=== PATIENT | female | born 1995 | race Caucasian/White ===

== ENCOUNTER 2018-08-23 00:03 | Emergency (ER) | payer OTHER ==
[~2018-08-23 00:03] MED LIST: AUG250L PO; CYCL10TA29 PO; DICL-195 PO; LOR5/325 PO; NO RTN MEDS
[2018-08-23 00:08] VITALS: BP 137/90
--- NOTE | 2018-08-23 00:08 | ER Report ---
History and Physical Time Seen By MD: 00:05 HPI/ROS CHIEF COMPLAINT: Left shoulder injury,? 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 She has a lot of anterior shoulder pain. She has decreased range of motion. He is wondering if her shoulders dislocated. Allergies: Coded Allergies: No Known Drug Allergies (Verified , 08/23/18) Home Meds Active Scripts Hydrocodone Bit/Acetaminophen (HYDROCODON-ACETAMINOPHEN 5-325) 1 Each Tablet, 1 EACH PO Q4-6H PRN for PAIN, #12 TAKE ONE TABLET BY MOUTH EVERY 4-6 HOURS NEEDED FOR PAIN Prov:GOPIMICHAEL M DO 08/23/18 Discontinued Scripts Diclofenac Sodium (DICLOFENAC SODIUM) 75 Mg Tablet., 75 MG PO BID, #20 TAB Prov:NORMA DANG [employer]AD NETWORK ARCHITECT 11/11/15 Reviewed Nurses Notes: Yes Old Medical Records Reviewed: Yes Hx Smoking: No Smoking Status: Never Smoker Constitutional Vital Sign - Last 24 Hours 08/23/18 00:08 Temp 97.9 Pulse 105 Resp 14 B/P (MAP) 137/90 Pulse Ox 91 O2 Delivery Room Air Physical Exam General Appearance: The patient is alert, has no immediate need for airway protection and no current signs of toxicity. Vital signs stable, afebrile Eyes: Pupils equal and round no injection. Respiratory: Chest is non tender, lungs are clear to auscultation. Cardiac: regular rate and rhythm Gastrointestinal: Abdomen is soft and non tender, no masses, bowel sounds normal. Musculoskeletal: Neck: Neck is supple and non tender. Extremities have full range of motion and are non tender. Left shoulder, tenderness over the before meals joint, the anterior aspect of the shoulder. The shoulder does not appear dislocated. She demonstrates about 50% range of motion. Left upper extremity is neurovascularly intact Skin: No rashes or lesions. DIFFERENTIAL DIAGNOSIS: After history and physical exam differential diagnosis was considered for sprain, strain, fracture, dislocation, contusion Medical Decision Making EKG/Imaging Imaging X-ray: Two-view chest x-ray was obtained. I viewed the images myself on the PACS system. My interpretation of the images is: No fracture no dislocation or malalignment. The radiologist interpretation had no clinically significant variation from this interpretation. ED Course/Re-evaluation ED Course Patient was admitted to an examination room. H&P was done. The differential diagnoses was considered. On clinical examination. Patient has neurovascularly intact. Left arm. The shoulder is very tender to palpation. There is decreased range of motion. Diagnostic x-rays show no obvious fracture or dislocation. Patient's placed in a sling and advised to conservative treatment plan of ibuprofen. A limited supply of Lortab is provided for temporary pain relief. Decision to Disposition Date: Aug 23, 2018 Decision to Disposition Time: 00:39 Depart Departure Latest Vital Signs Vital Signs Date Time Temp Pulse Resp B/P (MAP) Pulse Ox O2 Delivery O2 Flow Rate FiO2 08/23/18 00:08 97.9 105 14 137/90 91 Room Air Impression: Primary Impression: Contusion of left shoulder Additional Impression: Sprain of shoulder, left Condition: Improved Disposition: HOME OR SELF-CARE New Scripts Hydrocodone Bit/Acetaminophen (HYDROCODON-ACETAMINOPHEN 5-325) 1 Each Tablet 1 EACH PO Q4-6H PRN for PAIN, #12 TAKE ONE TABLET BY MOUTH EVERY 4-6 HOURS NEEDED FOR PAIN Prov: MICHAEL NGUYỄN DO 08/23/18 Patient Instructions: Contusion in Adults (ED), Shoulder Sprain (ED) Additional Instructions: Take ibuprofen 200 mg 3 tablets 3 times a day with food Apply ice packs to this area as much as possible for the 1st 2-3 days Follow-up with the team physician. Dr. Palomino Problem Qualifiers Primary Impression: Contusion of left shoulder Encounter type: initial encounter Qualified Codes: S40.012A - Contusion of left shoulder, initial encounter Additional Impression: Sprain of shoulder, left Encounter type: initial encounter Shoulder sprain type: unspecified sprain Qualified Codes: S43.402A - Unspecified sprain of left shoulder joint, initial encounter MICHAEL NGUYỄN DO Aug 23, 2018 00:08
[2018-08-23] MEDS ORDERED: LOR5/325 PO (00:41)
[2018-08-23] MEDS ORDERED: ACET/HYDROC 5/325MG TH ER ONLY 2 TAB/BOTTLE PO ONE (00:45)
--- NOTE | 2018-08-23 00:49 | RADIOLOGY IMAGING REPORT ---
[place] [facility] [place] Christina Madera : 1995 MR: [id number] V: [id number] EXAM DATE: ORDERING PHYSICIAN: MICHAEL NGUYỄN TECHNOLOGIST: Location: [facility] Patient: Christina Madera : 1995 Visit/Account:[id number] Date of Sevice: 08/23/2018 INDICATION: Fall, left shoulder injury and pain. Possible dislocation. EXAM DATE: 08/23/2018 12:08 AM COMPARISON: 08/14/2014. FINDINGS: 2 views of the left shoulder. Mineralization is normal. No definite acute alignment abnormality or f racture. Remote clavicle fracture. Soft tissues are unremarkable. IMPRESSION: No definite acute osseous abnormality of the left shoulder. If there is persistent clin ical concern for dislocation, consider dedicated axillary view. Report Dictated By: Jorge Giles MD at 08/23/2018 12:43 AM Report E-Signed By: Jorge Giles MD at 08/23/2018 12:46 AM WSN:[id number]
== END 2018-08-23 00:58 | disposition home or self-care (01) ==
LOC: ER 00:22
DX: S40.012A Contusion of left shoulder, initial encounter (principal); S43.402A Unspecified sprain of left shoulder joint, initial encounter; W18.30XA Fall on same level, unspecified, initial encounter; Y93.22 Activity, ice hockey
CPT/HCPCS: 73030; 99283; A4565

== ENCOUNTER 2018-11-24 22:25 | Emergency (ER) | payer OTHER ==
[2018-11-24 22:34] VITALS: BP 133/88
[2018-11-24 23:01] LABS: PLATELET COUNT, AUTOMATED 237 K/uL (150-450)
--- NOTE | 2018-11-24 23:14 | ER Report ---
History and Physical Time Seen By MD: 23:13 Hx. of Stated Complaint: PATIENT GOING THROUGH DIVORCE, WANT TO SHOOT HERSELF. HPI/ROS CHIEF COMPLAINT: Depression, suicidal ideation HISTORY OF PRESENT ILLNESS: Patient is a 23-year-old female here with complaints of depression, suicidal ideation, currently going through a divorce. Patient has been having intermittent thoughts of suicide specifically by means of a gun. Patient does have access to weapons. Patient does report using cannabis, acid, alcohol intermittently. Patient denies prior history of suicide attempts. Patient does report history of cutting. REVIEW OF SYSTEMS: Constitutional: No fever, no chills. Eyes: No discharge. ENT: No sore throat. Cardiovascular: No chest pain, no palpitations. Respiratory: No cough, no shortness of breath. Gastrointestinal: No abdominal pain, no vomiting. Genitourinary: No hematuria. Musculoskeletal: No back pain. Skin: No rashes. Neurological: No headache. Psych: + SI, depression, anxiety Allergies: Coded Allergies: No Known Drug Allergies (Verified , 08/23/18) Home Meds Active Scripts Hydrocodone Bit/Acetaminophen (HYDROCODON-ACETAMINOPHEN 5-325) 1 Each Tablet, 1 EACH PO Q4-6H PRN for PAIN, #12 TAKE ONE TABLET BY MOUTH EVERY 4-6 HOURS NEEDED FOR PAIN Prov:MICHAEL NGUYỄN DO 08/23/18 Hx Smoking: No Smoking Status: Never Smoker Hx Substance Use Disorder: No Hx Alcohol Use: Yes Constitutional Vital Sign - Last 24 Hours 11/24/18 22:34 Temp 98.8 Pulse 104 Resp 16 B/P (MAP) 133/88 Pulse Ox 95 O2 Delivery Room Air Physical Exam General Appearance: The patient is alert, has no immediate need for airway protection and no signs of toxicity. Anxious appearing, depressed, suicidal Eyes: Pupils equal and round no pallor or injection. ENT, Mouth: Mucous membranes are moist. Respiratory: There are no retractions, lungs are clear to auscultation. Cardiovascular: Regular rate and rhythm. [ ] Gastrointestinal: Abdomen is soft and non tender, no masses, bowel sounds normal. Neurological: No focal neurological deficits Skin: Warm and dry, no rashes. Musculoskeletal: Neck is supple non tender. Extremities are nontender, nonswollen and have full range of motion. DIFFERENTIAL DIAGNOSIS: After history and physical exam differential diagnosis was considered for depression, anxiety, suicidal ideation, significant life stressors Medical Decision Making Data Points Result Diagram: 11/24/18223111/24/182231 Laboratory Hematology Test 11/24/18 22:32 11/24/18 22:34 Red Blood Count 5.26 M/uL (4.17-5.56) Mean Corpuscular Volume 90.9 fL (80.0-96.0) Mean Corpuscular Hemoglobin 31.5 pg (26.0-33.0) Mean Corpuscular Hemoglobin Concent 34.7 g/dL (32.0-36.0) Red Cell Distribution Width 12.8 % (11.5-14.5) Mean Platelet Volume 9.2 fL (7.2-11.1) Neutrophils (%) (Auto) 68.0 % (39.4-72.5) Lymphocytes (%) (Auto) 23.7 % (17.6-49.6) Monocytes (%) (Auto) 6.9 % (4.1-12.4) Eosinophils (%) (Auto) 0.8 % (0.4-6.7) Basophils (%) (Auto) 0.6 % (0.3-1.4) Nucleated RBC Relative Count (auto) 0.0 /100WBC Neutrophils # (Auto) 5.6 K/uL (2.0-7.4) Lymphocytes # (Auto) 1.9 K/uL (1.3-3.6) Monocytes # (Auto) 0.6 K/uL (0.3-1.0) Eosinophils # (Auto) 0.1 K/uL (0.0-0.5) Basophils # (Auto) 0.1 K/uL (0.0-0.1) Nucleated RBC Absolute Count (auto) 0.00 K/uL Sodium Level 144 mmol/L (137-145) Potassium Level 3.0 mmol/L (3.5-5.0) Chloride Level 104 mmol/L (98-107) Carbon Dioxide Level 25 mmol/L (22-31) Blood Urea Nitrogen 9 mg/dl (7-18) Creatinine 0.90 mg/dl (0.52-1.04) Glomerular Filtration Rate Calc > 60.0 Random Glucose 93 mg/dl (75-110) Calcium Level 9.9 mg/dl (8.4-10.2) Magnesium Level 1.7 mg/dl (1.7-2.2) Total Bilirubin 0.7 mg/dl (0.2-1.3) Aspartate Amino Transf (AST/SGOT) 31 U/L (0-35) Alanine Aminotransferase (ALT/SGPT) 22 U/L (0-56) Alkaline Phosphatase 77 U/L (0-126) Total Protein 8.5 g/dl (6.3-8.2) Albumin 4.8 g/dl (3.5-5.0) Salicylates Level < 10 mg/L Salicylate Last Dose Date unknown Acetaminophen Level < 10 ug/ml Serum Alcohol < 10 mg/dl Urine Color Yellow Urine Clarity Clear Urine pH 5.0 pH (4.8-9.5) Urine Specific [place] 1.030 Urine Protein Negative mg/dL (NEGATIVE) Urine Glucose (UA) Negative mg/dL (NEGATIVE) Urine Ketones 20 mg/dL (NEGATIVE) Urine Blood Large (NEGATIVE) Urine Nitrite Negative (NEGATIVE) Urine Bilirubin Negative (NEGATIVE) Urine Urobilinogen 2.0 mg/dL (0.2-1.9) Urine Leukocyte Esterase Negative (NEGATIVE) Urine RBC 89 /HPF (0-2/HPF) Urine WBC 8 /HPF (0-5/HPF) Urine Squamous Epithelial Cells Many /LPF (</=FEW) Urine Bacteria Negative /HPF (NONE-FEW) Urine Hyaline Casts Few /LPF (NONE-FEW) Urine Mucus Few /HPF (NONE-FEW) Urine HCG, Qualitative Negative (NEGATIVE) Urine Opiates Screen Negative Urine Barbiturates Screen Negative Ur Tricyclic Antidepressants Screen Negative Urine Phencyclidine Screen Negative Urine Amphetamines Screen Negative Urine Benzodiazepines Screen Negative Urine Cocaine Screen Negative Urine Cannabinoids Screen Negative Chemistry Test 11/24/18 22:32 11/24/18 22:34 White Blood Count 8.2 k/uL (4.5-11.0) Red Blood Count 5.26 M/uL (4.17-5.56) Hemoglobin 16.6 g/dL (12.0-16.0) Hematocrit 47.8 % (34.0-47.0) Mean Corpuscular Volume 90.9 fL (80.0-96.0) Mean Corpuscular Hemoglobin 31.5 pg (26.0-33.0) Mean Corpuscular Hemoglobin Concent 34.7 g/dL (32.0-36.0) Red Cell Distribution Width 12.8 % (11.5-14.5) Platelet Count 237 K/uL (150-450) Mean Platelet Volume 9.2 fL (7.2-11.1) Neutrophils (%) (Auto) 68.0 % (39.4-72.5) Lymphocytes (%) (Auto) 23.7 % (17.6-49.6) Monocytes (%) (Auto) 6.9 % (4.1-12.4) Eosinophils (%) (Auto) 0.8 % (0.4-6.7) Basophils (%) (Auto) 0.6 % (0.3-1.4) Nucleated RBC Relative Count (auto) 0.0 /100WBC Neutrophils # (Auto) 5.6 K/uL (2.0-7.4) Lymphocytes # (Auto) 1.9 K/uL (1.3-3.6) Monocytes # (Auto) 0.6 K/uL (0.3-1.0) Eosinophils # (Auto) 0.1 K/uL (0.0-0.5) Basophils # (Auto) 0.1 K/uL (0.0-0.1) Nucleated RBC Absolute Count (auto) 0.00 K/uL Glomerular Filtration Rate Calc > 60.0 Calcium Level 9.9 mg/dl (8.4-10.2) Magnesium Level 1.7 mg/dl (1.7-2.2) Total Bilirubin 0.7 mg/dl (0.2-1.3) Aspartate Amino Transf (AST/SGOT) 31 U/L (0-35) Alanine Aminotransferase (ALT/SGPT) 22 U/L (0-56) Alkaline Phosphatase 77 U/L (0-126) Total Protein 8.5 g/dl (6.3-8.2) Albumin 4.8 g/dl (3.5-5.0) Salicylates Level < 10 mg/L Salicylate Last Dose Date unknown Acetaminophen Level < 10 ug/ml Serum Alcohol < 10 mg/dl Urine Color Yellow Urine Clarity Clear Urine pH 5.0 pH (4.8-9.5) Urine Specific [place] 1.030 Urine Protein Negative mg/dL (NEGATIVE) Urine Glucose (UA) Negative mg/dL (NEGATIVE) Urine Ketones 20 mg/dL (NEGATIVE) Urine Blood Large (NEGATIVE) Urine Nitrite Negative (NEGATIVE) Urine Bilirubin Negative (NEGATIVE) Urine Urobilinogen 2.0 mg/dL (0.2-1.9) Urine Leukocyte Esterase Negative (NEGATIVE) Urine RBC 89 /HPF (0-2/HPF) Urine WBC 8 /HPF (0-5/HPF) Urine Squamous Epithelial Cells Many /LPF (</=FEW) Urine Bacteria Negative /HPF (NONE-FEW) Urine Hyaline Casts Few /LPF (NONE-FEW) Urine Mucus Few /HPF (NONE-FEW) Urine HCG, Qualitative Negative (NEGATIVE) Urine Opiates Screen Negative Urine Barbiturates Screen Negative Ur Tricyclic Antidepressants Screen Negative Urine Phencyclidine Screen Negative Urine Amphetamines Screen Negative Urine Benzodiazepines Screen Negative Urine Cocaine Screen Negative Urine Cannabinoids Screen Negative Toxicology Test 11/24/18 22:32 11/24/18 22:34 Salicylates Level < 10 mg/L Salicylate Last Dose Date unknown Acetaminophen Level < 10 ug/ml Serum Alcohol < 10 mg/dl Urine Opiates Screen Negative Urine Barbiturates Screen Negative Ur Tricyclic Antidepressants Screen Negative Urine Phencyclidine Screen Negative Urine Amphetamines Screen Negative Urine Benzodiazepines Screen Negative Urine Cocaine Screen Negative Urine Cannabinoids Screen Negative Urinalysis Test 11/24/18 22:34 Urine Color Yellow Urine Clarity Clear Urine pH 5.0 pH (4.8-9.5) Urine Specific [place] 1.030 Urine Protein Negative mg/dL (NEGATIVE) Urine Glucose (UA) Negative mg/dL (NEGATIVE) Urine Ketones 20 mg/dL (NEGATIVE) Urine Blood Large (NEGATIVE) Urine Nitrite Negative (NEGATIVE) Urine Bilirubin Negative (NEGATIVE) Urine Urobilinogen 2.0 mg/dL (0.2-1.9) Urine Leukocyte Esterase Negative (NEGATIVE) Urine RBC 89 /HPF (0-2/HPF) Urine WBC 8 /HPF (0-5/HPF) Urine Squamous Epithelial Cells Many /LPF (</=FEW) Urine Bacteria Negative /HPF (NONE-FEW) Urine Hyaline Casts Few /LPF (NONE-FEW) Urine Mucus Few /HPF (NONE-FEW) Urine HCG, Qualitative Negative (NEGATIVE) ED Course/Re-evaluation ED Course Patient is a 23-year-old female here with complaints of depression, anxiety, suicidal ideations. Patient does report having history of cutting however she denies prior history of suicide attempts. Patient admits to active suicidal ideations using weapons which she has access to. I discussed the patient with Dr. Vasquez who accepted the patient to behavioral health services. Patient became increasingly more anxious and felt isolated to I discussed with her further the reasoning for admitting her to behavioral health services. Patient was given Ativan 1 tablet orally and was stable at time of admission. Decision to Disposition Date: November 24, 2018 Decision to Disposition Time: 22:30 Depart Departure Latest Vital Signs Vital Signs Date Time Temp Pulse Resp B/P (MAP) Pulse Ox O2 Delivery O2 Flow Rate FiO2 11/24/18 22:34 98.8 104 16 133/88 95 Room Air Impression: Primary Impression: Depressed Additional Impression: Suicidal ideations Condition: Condition Unchanged Disposition: XFER TO [facility] Problem Qualifiers ESTHER MENENDEZ DO November 24, 2018 23:14
[2018-11-25] MEDS ORDERED: LORazepam 1 MG TAB PO ONE (00:35)
== END 2018-11-25 01:00 ==
LOC: ER 22:48
DX: F32.9 Major depressive disorder, single episode, unspecified (principal); R45.851 Suicidal ideations; F41.9 Anxiety disorder, unspecified
CPT/HCPCS: 36415; 80305; 80320; 80329; 81001; 81025; 82040; 82247; 82310; 82374; 82435; 82565; 82947; 83735; 84075; 84132; 84155; 84295; 84443; 84450; 84460; 84520; 85025; 99284

== ENCOUNTER 2018-11-25 00:20 | Inpatient (IN) | payer OTHER ==
[~2018-11-25] VITALS: Ht 167.6 cm; Wt 77.1 kg
[2018-11-25] MEDS ORDERED: LORazepam 1 MG TAB PO ONE ×2 (00:30→12:50)
[2018-11-25] MEDS ORDERED: ACETAMINOPHEN 325 MG TAB PO PRN (00:45)
[2018-11-25] MEDS ORDERED: MAG HYD/AL HYD/SIMETH 30ML UDC PO PRN (00:45)
[2018-11-25 02:31] VITALS: BP 127/75
[2018-11-25] MEDS ORDERED: MULTIVITAMINS TAB PO SCH (09:00)
[2018-11-25] MEDS ORDERED: NICOTINE CARTRIDGE 1 EA PO PRN (11:10)
[2018-11-25] MEDS ORDERED: buPROPion XL 150 MG TABCR PO SCH (11:35)
[2018-11-25] MEDS: NICOTINE INH SYSTEM 10 MG/INH INH PRN ×3 (11:43→14:40)
--- NOTE | 2018-11-25 19:38 | HISTORY AND PHYSICAL ---
DATE OF ADMISSION: November 25, 2018 DATE OF INTERVIEW: November 25, 2018, at 10 a.m. ATTENDING PHYSICIAN Gemma Vasquez MD CHIEF COMPLAINT "I was not feeling well, really sad. I was feeling suicidal and thinking about shooting myself." HISTORY OF PRESENT ILLNESS This is the first ever psychiatric admission for this 23-year-old female who is here as a voluntary patient for depression with suicidal ideation. The patient was brought to the Emergency Room last night by her sister because she was feeling suicidal. She has been significantly upset for the past three days because her relationship with her , Stella, is falling apart. She and Stella have been for a year, but they are now proceeding towards a divorce, and paperwork has already been drawn up. Stella has not been responding to her texts for the past week. The patient is also stressed because of school. 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 She feels that her depression, which has been on and off in nature, has been worse and more significant in the past month or two. She has had decreased appetite with minimal weight loss and has not been sleeping well with initial and middle insomnia. She feels extremely stressed over the past few days and has been crying a lot. She says it is hard for her to concentrate. She was with her sister last night and verbalized suicidal ideation with a plan of shooting herself, and she says that she does have access to a gun. However, the gun has been removed from her home. PAST PSYCHIATRIC HISTORY Patient has had therapy on and off over the years, but she has never been consistent with it for any length of time. She started cutting when she was 14 years old on her forearm and on her leg. The last time she cut was one year ago. She has never had a psychiatric hospitalization. The most recent therapist was Cristina at the [facility], but she has only seen her a couple of times. She has never had a suicide attempt. FAMILY HISTORY She has a brother with a history of alcohol abuse, in remission now. She says her father had a history of depression. PAST MEDICAL HISTORY Fractured collarbone in the past. MEDICATIONS In the distant past, she was on trazodone and has tried some antidepressants including Zoloft, but she discontinued it due to GI upset. ALLERGIES NKDA. SOCIAL HISTORY The patient was born in [place] to parents who are still . She was the youngest of five children. She was raised in [place]. She attended [employer] and graduated in 2016. She participated in ice hockey and on the basketball team and the track team when she was in high school. She attended [employer] in [place], [place], where she did obtain her associate's degree. She started in January 2018 at the [employer], and she has just finished her sandra year majoring in physical education. 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 Her grades have been okay. She was to her girlfriend, Stella, one year ago, but they are now going through a divorce. She says her mother and her family members are supportive. ABUSE HISTORY The patient did not want to disclose this, saying that she would prefer to discuss it with our therapist privately later on today. SUBSTANCE ABUSE HISTORY The patient uses marijuana daily multiple times all day long. She occasionally uses alcohol about once or sometimes twice a week. When she does drink, she will drink about six drinks in one sitting. In the past, she tried LSD and hydrocodone and has no other substance abuse history. PHYSICAL EXAMINATION Please see the emergency room physician's report. VITAL SIGNS: Temperature 98.2, pulse 83, respiratory rate 16, blood pressure 127/75, pulse ox is 95% on room air. LABORATORY STUDIES Hemoglobin is high at 16.6. Hematocrit is high at 47.8. The remainder of the CBC is WNL. Chemistry panel: The sodium is low at 3.0, total protein high at 8.5. The remainder of the chemistry panel is WNL. HCG is negative. TSH is normal at 2.78. Urinalysis shows high ketones at 20, large blood, urobilinogen is 2.0, RBCs 89, WBCs 8, squamous cells many. Toxicology screen is negative. Serum alcohol is nil. MENTAL STATUS EXAMINATION The patient was somewhat disheveled, dressed in hospital scrubs. She was very tearful throughout the interview with poor eye contact, a downcast gaze, and psychomotor retardation. Her speech was slow and low volume. Mood and affect were significantly depressed. Thought process was logical and goal directed. Thought content was positive for suicidal ideation as recent as last night. She denies any suicidal ideation today. She denies homicidal ideation, auditory hallucinations, visual hallucinations, and delusions. She is alert and fully oriented to person, place, time, and situation. Memory is intact for immediate, recent, and remote recall. Intelligence is average based on interview. Insight and judgment are fair. IMPRESSION 1. Adjustment disorder with depressed and anxious mood. 2. Cannabis use disorder, severe. 3. Substance-induced depressive disorder. 4. Cluster B personality traits. PLAN The patient is admitted to [facility] and being maintained on suicide precautions. She will attend individual and group therapies. We will start Wellbutrin every morning for depression, and we will also start trazodone 50 mg at bedtime for sleep. She will work on sobriety skills. Her estimated length of stay is three to five days. VANESSA
[2018-11-25] MEDS ORDERED: traZODone HCL 50 MG TAB PO SCH (21:00)
== END 2018-11-25 18:55 | disposition home or self-care (01) | DRG 882 ==
LOC: BHS 00:20
PROVIDERS: ADMIT Psychiatry & Neurology Psychiatry; ATTEND Psychiatry & Neurology Psychiatry
DX: F43.23 Adjustment disorder with mixed anxiety and depressed mood (principal); R45.851 Suicidal ideations; F12.288 Cannabis dependence with other cannabis-induced disorder; Z63.5 Disruption of family by separation and divorce; Z73.3 Stress, not elsewhere classified; Z55.8 Other problems related to education and literacy; Z91.5 Personal history of self-harm; Z81.1 Family history of alcohol abuse and dependence; Z81.8 Family history of other mental and behavioral disorders